=== PATIENT | male | born 1950 | race Caucasian/White ===

== ENCOUNTER 2018-02-11 04:15 | Emergency (ER) | payer OTHER ==
[~2018-02-11] VITALS: Ht 195.6 cm; Wt 108.9 kg
[2018-02-11 05:28] LABS: Basophils # (auto) 0 uL; Lymphocytes # (auto) 0.8 uL; Monocytes # (auto) 0.5 uL; Neutrophils # (auto) 3.1 uL
[2018-02-11 05:30] LABS: Basophils % (auto) 0.8 % (0.0-2.0); Eosinophils # (auto) 0.2 uL; Eosinophils % (auto) 3.5 % (0.0-7.0); Lymphocytes % (auto) 16.8 % (10.0-50.0); Mean Corpuscular Hemoglobin 26.7 pg (28.0-32.0); Mean Corpuscular Hgb Conc. 32.6 g/dL (32.0-36.0); Mean Corpuscular Volume 82.1 fL (80.0-100.0); Monocytes % (auto) 10.7 % (0.0-12.0); Neutrophils % (auto) 68.2 % (37.0-80.0); Nucleated Red Blood Cells % 0.1 %; Platelet Count (auto) 111 10^3/uL (140-450); Red Blood Cells 5.24 10^6/uL (4.5-5.90); Red Cell Distribution Width 17.3 % (11.8-14.3); White Blood Cell 4.5 10^3/uL (4.4-10.8)
[2018-02-11 05:43] LABS: Alanine Aminotransferase 17 U/L (16-61); Albumin 3.6 g/dL (3.4-5.0); Anion Gap 11 (5-15); Aspartate Aminotransferase 22 U/L (15-37); BUN/Creatinine Ratio 18.5; Blood Urea Nitrogen 20 mg/dL (7-18); Calcium 8.2 mg/dL (8.5-10.1); Carbon Dioxide 23 mmol/L (21-32); Chloride 107 mmol/L (98-107); GFR African American 87 mL/min; GFR Non-African American 72 mL/min; Glucose 92 mg/dL (74-106); INR 1.07 (0.9-1.15); Magnesium 1.9 mg/dL (1.6-2.6); Partial Thromboplastin Time 26.6 sec (23.78-33.04); Prothrombin Time 11.4 sec (9.27-12.13); Sodium 141 mmol/L (136-145)
[2018-02-11 05:48] LABS: Alkaline Phosphatase 117 U/L (45-117); Bilirubin, Total 0.7 mg/dL (0.2-1.0); Total Protein 7.2 g/dL (6.4-8.2)
[2018-02-11] MEDS ORDERED: IOHEXOL 350 MG/ML 100ML IJ ONE (08:16)
[2018-02-11 09:41] LABS: Urine Bacteria NONE SEEN /hpf (None Seen); Urine Blood Negative /uL (Negative); Urine Mucus FEW (None Seen); Urine Specific Gravity 1.018 (1.001-1.035); Urine WBC 1 /hpf (0 - 3)
[2018-02-11] MEDS ORDERED: RASA1TAB PO (10:48)
[2018-02-11] MEDS ORDERED: AML5T PO (10:48)
[2018-02-11] MEDS ORDERED: AMAN100T PO (10:48)
[2018-02-11] MEDS ORDERED: OMEP20TA PO (10:48)
[2018-02-11] MEDS ORDERED: ATOR40TA52 PO (10:48)
[2018-02-11] MEDS ORDERED: METO25TA5 PO (10:48)
[2018-02-11] MEDS ORDERED: PRA25T PO (10:48)
[2018-02-11] MEDS ORDERED: CARB25TA3 PO ×6 (10:48)
[2018-02-11] MEDS ORDERED: ASPI325T4 PO (10:48)
[2018-02-11 13:02] VITALS: BP 137/82
== END 2018-02-11 14:09 | disposition home or self-care (01) ==
LOC: EDBD 04:15 → ER 04:23
DX: I25.709 Atherosclerosis of coronary artery bypass graft(s), unspecified, with unspecified angina pectoris (principal); I48.91 Unspecified atrial fibrillation; G20 Parkinson's disease; I10 Essential (primary) hypertension; Z79.899 Other long term (current) drug therapy; Z95.1 Presence of aortocoronary bypass graft
CPT/HCPCS: 36415; 71045; 71275; 80053; 81001; 83735; 83880; 84484; 85025; 85379; 85610; 85730; 93005; 99285; Q9967